=== PATIENT | male | born 1985 | race Hispanic/Latino ===

== ENCOUNTER 2020-03-01 13:36 | Emergency (ER) | payer SELFPAY ==
[~2020-03-01] VITALS: Ht 170.2 cm; Wt 97.7 kg
[~2020-03-01 13:36] MED LIST: NO MEDS; PRILOSEC OTC20 MG OR
[2020-03-01] MEDS ORDERED: ALLERGY RELF10 M3 PO (14:53)
[2020-03-01] MEDS ORDERED: OMEPRAZOLE DR20 MG PO (14:53)
[2020-03-01 15:33] VITALS: BP 131/89
== END 2020-03-01 15:33 | disposition home or self-care (01) | DRG 916 ==
LOC: ED 13:36
DX: T78.40XA Allergy, unspecified, initial encounter (principal); X58.XXXA Exposure to other specified factors, initial encounter

== ENCOUNTER 2022-01-12 19:14 | Emergency (ER) | payer SELFPAY ==
[~2022-01-12] VITALS: Ht 170.2 cm; Wt 106.0 kg
[~2022-01-12 19:14] MED LIST changes: +ALLERGY RELF10 M3 PO; +OMEPRAZOLE DR20 MG PO
[2022-01-12 19:23] VITALS: BP 149/106
[2022-01-12 19:30] VITALS: BP 147/89
[2022-01-12 20:00] VITALS: BP 138/91
[2022-01-12 20:08] LABS: HEMATOCRIT 46.1 % (39.0-50.0); IMMATURE GRANULOCYTES 0.3 % (0.0-5.0); MEAN CELL VOLUME 89.7 fL CALC (80.0-100.0); MEAN CORPUSCULAR HGB 31.1 pG CALC (26.0-32.0); MEAN CORPUSCULAR HGB CONC 34.7 g/dL CAL (32.0-36.0); NEUT# 12.1 thou/uL (1.82-7.42); RED BLOOD COUNT 5.14 mill/uL (4.70-6.10); RED CELL DISTRI WIDTH 12.4 % (11.5-15.5)
[2022-01-12] MEDS ORDERED: CLARITIN10 M2 PO (20:21)
[2022-01-12] MEDS ORDERED: AMOXICILLIN500 MG PO (20:21)
[2022-01-12 20:23] LABS: ALBUMIN 4.3 g/dL (3.2-5.0); ALKALINE PHOSPHATASE 117 u/l (38-126); ANION GAP 13 (6-22 (CALC)); BILIRUBIN, TOTAL 0.4 mg/dL (0.0-1.4); BUN 13 mg/dL (9-20); BUN/CREATININE RATIO 15 (12-20 (CALC)); CARBON DIOXIDE 26 mmol/l (22-30); CHLORIDE 101 mmol/l (95-108); CREATININE 0.8 mg/dL (0.7-1.3); GFR FOR AFR.AMER. > 60 ML/MIN (>=60 (CALC)); GFR OTHER RACES > 60 ML/MIN (>=60 (CALC)); POTASSIUM 3.9 mmol/l (3.5-5.1); SGOT/AST 28 u/l (17-59); SODIUM 137 mmol/l (137-146); TOTAL PROTEIN 7.6 g/dL (6.3-8.2)
[2022-01-12 20:30] VITALS: BP 139/92
[2022-01-12 21:00] VITALS: BP 133/91
[2022-01-12 21:09] VITALS: BP 133/91
== END 2022-01-12 21:14 | disposition home or self-care (01) | DRG 153 ==
LOC: ED 19:14
PROVIDERS: Emergency Medicine
DX: J02.0 Streptococcal pharyngitis (principal); E11.65 Type 2 diabetes mellitus with hyperglycemia; I10 Essential (primary) hypertension; Z91.19 Patient's noncompliance with other medical treatment and regimen; Z20.822 Contact with and (suspected) exposure to COVID-19

== ENCOUNTER 2022-04-09 12:14 | Emergency (ER) | payer SELFPAY ==
[~2022-04-09] VITALS: Ht 170.2 cm; Wt 106.0 kg
[~2022-04-09 12:14] MED LIST changes: +AMOXICILLIN500 MG PO; +CLARITIN10 M2 PO
[2022-04-09 13:07] VITALS: BP 151/89
[2022-04-09] MEDS ORDERED: CEPHALEXIN500 M1 PO (13:19)
[2022-04-09] MEDS ORDERED: BACTRIM DS1 TAB PO (13:19)
== END 2022-04-09 13:38 | disposition home or self-care (01) | DRG 159 ==
LOC: ED 12:14
DX: K12.2 Cellulitis and abscess of mouth (principal)

== ENCOUNTER 2023-02-11 09:57 | Emergency (ER) | payer SELFPAY ==
[2023-02-11] VITALS (14 sets, daily range): BP systolic 102–133; BP diastolic 62–92
[~2023-02-11] VITALS: Ht 170.2 cm; Wt 103.0 kg
[~2023-02-11 09:57] MED LIST changes: +BACTRIM DS1 TAB PO; +CEPHALEXIN500 M1 PO
[2023-02-11] MEDS ORDERED: ATORVASTATIN CA10 MG PO (10:48)
[2023-02-11] MEDS ORDERED: METFORMIN500 M2 PO (10:48)
[2023-02-11] MEDS ORDERED: AMLODIPINE BESY10 MG PO (10:49)
[2023-02-11 11:02] LABS: BASO% 0.4 % (0-3); EOS% 5.7 % (0-8); HEMATOCRIT 46.5 % (39.0-50.0); HEMOGLOBIN 15.9 g/dl (14.0-18.0); IMMATURE GRANULOCYTES 0.2 % (0.0-5.0); LYMPH% 27.6 % (15-41); MEAN CELL VOLUME 89.6 fL CALC (80.0-100.0); MEAN CORPUSCULAR HGB 30.6 pG CALC (26.0-32.0); MEAN CORPUSCULAR HGB CONC 34.2 g/dL CAL (32.0-36.0); MONO% 6.3 % (2-13); NEUT# 5.45 thou/uL (1.82-7.42); NEUT% 59.8 % (42-76); RED BLOOD COUNT 5.19 mill/uL (4.70-6.10); RED CELL DISTRI WIDTH 12.3 % (11.5-15.5)
[2023-02-11 11:05] LABS: ALBUMIN 4.5 g/dL (3.2-5.0); ALKALINE PHOSPHATASE 129 u/l (38-126); ANION GAP 13 (6-22 (CALC)); BUN 11 mg/dL (9-20); BUN/CREATININE RATIO 14 (12-20 (CALC)); CARBON DIOXIDE 25 mmol/l (22-30); CHLORIDE 105 mmol/l (95-108); CREATININE 0.8 mg/dL (0.7-1.3); GFR FOR AFR.AMER. > 60 ML/MIN (>=60 (CALC)); GFR OTHER RACES > 60 ML/MIN (>=60 (CALC)); LIPASE 105 u/l (23-300); POTASSIUM 3.9 mmol/l (3.5-5.1); SGOT/AST 40 u/l (17-59); SODIUM 139 mmol/l (137-146)
[2023-02-11 11:07] LABS: BILIRUBIN, TOTAL 0.6 mg/dL (0.2-1.3)
[2023-02-11 13:12] LABS: URINE BILIRUBIN - DIPSTICK Negative (NEGATIVE); URINE BLOOD DIPSTICK Negative (NEGATIVE); URINE GLUCOSE - DIPSTICK Negative (NEGATIVE); URINE KETONE Negative (NEGATIVE); URINE LEUK ESTERASE Negative (NEGATIVE); URINE NITRITE - DIPSTICK Negative (Negative); URINE PH 5.5 (4.5-8.0); URINE PROTEIN - DIPSTICK Negative (NEG-TRACE); URINE SPECIFIC GRAVITY 1.025; URINE UROBILINOGEN - DIPSTICK 0.2 E.U./dL (0.2)
[2023-02-11 13:13] LABS: URINE COLOR Yellow
[2023-02-11] MEDS ORDERED: OMEPRAZOLE DR40 MG PO (13:25)
== END 2023-02-11 13:52 | disposition home or self-care (01) | DRG 392 ==
LOC: ED 09:57
PROVIDERS: Family Medicine
DX: R10.11 Right upper quadrant pain (principal); R10.12 Left upper quadrant pain; I10 Essential (primary) hypertension; E11.9 Type 2 diabetes mellitus without complications; E66.9 Obesity, unspecified; Z79.84 Long term (current) use of oral hypoglycemic drugs; Z20.822 Contact with and (suspected) exposure to COVID-19
CPT/HCPCS: Q9967